=== PATIENT | male | born 1930 | race Caucasian/White ===

== ENCOUNTER 2017-08-09 10:00 | Day surgery (SDC) | payer MEDICARE, OTHER ==
[~2017-08-09] VITALS: Ht 188 cm; Wt 86.2 kg
[~2017-08-09 10:00] MED LIST: ATORVASTATIN CA10 MG PO; ELIQUIS5 MG PO; METFORMIN HCL500 MG PO; TOPROL XL25 MG PO; ZYLOPRIM300 MG PO
--- NOTE | 2017-08-09 13:13 | NUR ---
08/09/17 1313 Dread Leonard RESPONDS TO TAP AND VOICE AT 1310. OPA REMOVED. DENIES PAIN OR NAUSEA.
[2017-08-09] MEDS ORDERED: NORCO 5-325 TA1 EACH PO (14:15)
--- NOTE | 2017-08-09 16:15 | NUR ---
1600 RETURNED TO RM 8 FOR OBSERVATION DUE TO ABD CRAMPING.
--- NOTE | 2017-08-09 16:35 | NUR ---
RESTS QUIETLY. RESP EVEN.
--- NOTE | 2017-08-09 16:38 | NUR ---
DID NOT TAKE IV OUT IN PROCESS AND THEN PT BECAME VERY NAUSEATED SO TAPED BACK DOWN AND WAS GIVEN TE ZOFRAN.
--- NOTE | 2017-08-09 16:50 | NUR ---
PT C/O CONTINUED NAUSEA. SITTING WITH EMESIS BAG TO FACE. NO ACTUAL EMESIS, PHENERGAN GIVEN.
--- NOTE | 2017-08-09 17:50 | NUR ---
NOW I TOOK HIS IV WITH CATH TIP INTACT. WANTS TO GO HOME.
--- NOTE | 2017-08-09 17:54 | NUR ---
PT READY TO GO HOME. HAS TAKEN PO WELL. HAS VOISDED. DENIES NAUSEA. REQ TO HAVE PAIN PILLS AND GIVEN. SON ASSIST WITH GETTING DREESED. CAROLYN SWANN. ICE PACKS GIVEN.
--- NOTE | 2017-08-10 17:49 | OR ---
[facility] [address], [place] [address] Signed DATE OF PROCEDURE: 08/09/17 PREOPERATIVE DIAGNOSES Reducible umbilical hernia (12 mm). Reducible right indirect inguinal hernia. Right hydrocele (11.3 cm). POSTOPERATIVE DIAGNOSES Reducible umbilical hernia (12 mm). Reducible right indirect inguinal hernia. Right hydrocele (11.3 cm). PROCEDURE PERFORMED Primary umbilical herniorrhaphy with intraabdominal Ventralex mesh (6.4 cm). Right Yin onlay mesh inguinal herniorrhaphy. Right hydrocelectomy. ESTIMATED BLOOD LOSS: None. 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 [place] had [place] and [place] been busy [place] the house on the property. He said the last 3 years he has had a painful lump at his umbilicus and swelling in the right groin. He has also noted swelling in his right scrotum. He thinks the hernia in the groin is getting larger and more symptomatic. He went to his primary care provider. He was then asked to see me as a general surgeon. In the meantime, he had an ultrasound and sure enough, he has a large 11.3 cm hydrocele in his right hemiscrotum. On exam, it was very easy to evaluate these 3 areas. I gave Marianna a booklet on hernias and we reviewed that together in detail. We also reviewed the concept of communicating versus a noncommunicating hydrocele. He thought that when he laid down that his hydrocele shrink and became smaller. I explained to Marianna it is not uncommon for us to repair hydroceles at the time of an inguinal hernia surgery. In addition, he was given cardiac clearance by his Advertising Operations Coordinator and his Plastic Mixer. We reviewed umbilical hernia surgery. He understands the difference between a primary repair and a mesh repair. He understands there is risk to umbilical hernia surgery including not limited to bleeding, infection, scarring, change in contour of the skin, damage to bowel, infection of mesh requiring removal, recurrent hernias and chronic pain. In addition, he also understands the difference between a primary suture repair and a mesh repair of an inguinal hernia. There is risk including but not limited to bleeding, infection, scarring, change in contour of the skin, damage to the nerves, ischemic orchitis, recurrent hernias, and chronic pain. He also understands the 2 different hydrocele repairs and we reviewed that in detail. He expressed understanding and wished to Electronically Signed By: SHANICE JOHNSON MD 08/10/17 1749 PATIENT NAME: MARIANNA LEARY OPERATIVE REPORT DATE OF : 32 PHYSICIAN: SHANICE JOHNSON MD REPORT #: [id number] REPORT IS CONFIDENTIAL AND NOT TO BE RELEASED WITHOUT AUTHORIZATION [address] [address] Signed proceed. DESCRIPTION OF PROCEDURE I met with Matteo and his son in our preop area. We all agreed on the 3 areas and we marked them appropriately. After this, Matteo was taken into our operating room and placed in the supine position under general endotracheal tube anesthesia. He was given preoperative antibiotics along with subcutaneous heparin. SCDs were utilized. He was then prepped and draped in the usual sterile fashion. After this, we approached his umbilical hernia 1st. A standard infraumbilical transverse incision was made and carried down and around the umbilicus bluntly and with the cautery. The hernia sac was amputated and passed off the field. We chose our 6.4 cm round Ventralex mesh. We placed that into the abdominal cavity and brought it up, flushed against the posterior abdominal wall. The fascial defect was closed transversely with a running #1 Prolene suture. Several passes of the suture went through the tab on the mesh to help hold it in place. The tab was then cut flush with the abdominal wall and discarded. Local anesthetic was then copiously injected into the operative field. The wound was irrigated and suctioned out until clear. We held the umbilical skin down to the midline fascia with an interrupted 2-0 PDS suture. The dermis was then reapproximated with interrupted 3-0 subcuticular Monocryl sutures. The skin edges were then reapproximated with a running 6-0 fast absorbing plain gut suture. After this, we approached the right groin. A standard oblique incision was made in the right groin and carried down through the tissues bluntly and with the cautery. The external oblique fascia was opened along its length and developed medially and laterally. The ilioinguinal iliohypogastric nerves were visualized and protected throughout the case. The direct space was unremarkable. He did have just a small cord lipoma, which we easily from the cord down to the level of deep ring. It was suture ligated at the level of deep ring, amputated, and passed off the field. We then a moderate-sized inguinal hernia sac on the anteromedial side of the cord structures at the level of deep ring. We opened that up and reduce the fat contents. The neck of the hernia sac was then suture ligated with 2-0 PDS suture and then amputated and passed off the field. At this point, we realized that he had a noncommunicating hydrocele. We used gentle pressure to see if we could deliver that hydrocele and testicle up into the groin. However, this was not successful, we consequently made an incision over the right hemiscrotum vertically and then carried through the tissues with the help of the cautery. We made just wide enough to get the hydrocele and the testicle out onto the operative field. The hydrocele was opened and all the fluid was evacuated. The entire hydrocele sac was then excised back to the edges of the testicle near the epididymis. Hydrocele sac was then passed off the field. We then returned the testicle to the right hemiscrotum and made sure that the cord structures were not rotated. Just a single stitch was placed at the bottom of the scrotum through the base of the gubernaculum on the inferior pole of the testicle to help hold it in place. We then irrigated the wound and suctioned that out until clear. The scrotum was then closed with the help of interrupted 3-0 Monocryl sutures. The skin edges of the scrotum and then Electronically Signed By: SHANICE JOHNSON MD 08/10/17 1749 PATIENT NAME: MARIANNA LEARY OPERATIVE REPORT DATE OF : 32 PHYSICIAN: SHANICE JOHNSON MD REPORT #: [id number] REPORT IS CONFIDENTIAL AND NOT TO BE RELEASED WITHOUT AUTHORIZATION [address] [address] Signed reapproximated with a running 6-0 fast absorbing plain gut suture. After this, we returned to the groin and we used flat piece of Prolene mesh, and we cut that mesh to fit his groin and a slit was made in the mesh to accommodate the cord structures at the level of the deep ring. The mesh was held in place medially and laterally with a running #1 Prolene suture. There was no undue ten s ion of the mesh at the level of deep ring around the cord structures. We then injected local anesthetic into the operative field. The wound was irrigated and suctioned out until clear. The external oblique fascia was closed over the repair with a running 2 -0 PDS suture. Ernesto's fascia was reapproximated with a running 3-0 Monocryl suture. The dermis was reapproximated with interrupted 3-0 subcuticular Monocryl sutures. The skin edges were reapproximated with running 6-0 fast absorbing plain gut suture. After this, Bactroban ointment was applied to the umbilicus as well as the right hemiscrotal incision. Dry gauze and tape were applied to the umbilicus as well as the right groin. A dry ABD and some underwear was applied over the scrotum. Matteo was then awakened from his anesthesia, extubated in the OR, taken to recovery room in stable condition. MD LUIS ALBERTO Lee/Modl /[id number] cc: MD Brandyn Kyle MD Electronically Signed By: SHANICE JOHNSON MD 08/10/17 1749 PATIENT NAME: MARIANNA LEARY OPERATIVE REPORT DATE OF : 32 PHYSICIAN: SHANICE JOHNSON MD REPORT #: [id number] REPORT IS CONFIDENTIAL AND NOT TO BE RELEASED WITHOUT AUTHORIZATION
== END 2017-08-09 17:50 | disposition home or self-care (01) ==
LOC: DS 10:00
PROVIDERS: Colon & Rectal Surgery
PROC: 0WUF0JZ Supplement Abdominal Wall with Synthetic Substitute, Open Approach (ICD-10-PCS; principal; 2017-08-09 10:45)
PROC: 0YU50JZ Supplement Right Inguinal Region with Synthetic Substitute, Open Approach (ICD-10-PCS; 2017-08-09 10:45)
PROC: 0VB60ZZ Excision of Right Tunica Vaginalis, Open Approach (ICD-10-PCS; 2017-08-09 10:45)
DX: K42.9 Umbilical hernia without obstruction or gangrene (principal); K40.90 Unilateral inguinal hernia, without obstruction or gangrene, not specified as recurrent; N43.3 Hydrocele, unspecified; I48.91 Unspecified atrial fibrillation; I44.2 Atrioventricular block, complete; I10 Essential (primary) hypertension; N40.0 Benign prostatic hyperplasia without lower urinary tract symptoms; E78.5 Hyperlipidemia, unspecified; E11.9 Type 2 diabetes mellitus without complications; M10.9 Gout, unspecified; Z95.0 Presence of cardiac pacemaker; Z86.010 Personal history of colon polyps; Z79.899 Other long term (current) drug therapy; Z98.890 Other specified postprocedural states
CPT/HCPCS: 00750; C1781; J0330; J0690; J1170; J1885; J2250; J2405; J2550; J2704; J3010; J7120

== ENCOUNTER 2020-10-13 21:44 | Emergency (ER) | payer OTHER ==
[~2020-10-13] VITALS: Ht 188 cm; Wt 68.5 kg
[~2020-10-13 21:44] MED LIST changes: +NORCO 5-325 TA1 EACH PO
[2020-10-13] MEDS ORDERED: CELEBREX100 MG PO (22:05)
[2020-10-14] MEDS ORDERED: LASIX20 MG PO (00:22)
--- NOTE | 2020-10-15 21:30 | EKG ---
[facility] [address] [place] [address] Signed Atrial-sensed ventricular-paced rhythm Abnormal ECG When compared with ECG of 02-AUG-2017 09:25, Vent. rate has decreased BY 4 BPM Confirmed by GAIL ADKINS MD ([id number]) on 10/15/2020 9:30:27 PM Electronically Signed By: GAIL ADKINS MD 10/15/20 2130 PATIENT NAME: MARIANNA LEARY GENE Electrocardiogram DATE OF : 32 PHYSICIAN: GAIL ADKINS MD REPORT #: [id number] REPORT IS CONFIDENTIAL AND NOT TO BE RELEASED WITHOUT AUTHORIZATION
== END 2020-10-14 00:37 | disposition home or self-care (01) ==
LOC: ED 21:44
DX: I50.9 Heart failure, unspecified (principal); D64.9 Anemia, unspecified; I48.91 Unspecified atrial fibrillation; E78.00 Pure hypercholesterolemia, unspecified; Z79.899 Other long term (current) drug therapy; Z79.84 Long term (current) use of oral hypoglycemic drugs; Z85.51 Personal history of malignant neoplasm of bladder
CPT/HCPCS: 71045; 80053; 82607; 82728; 82746; 83540; 83880; 84466; 84484; 85025; 85045; 93005; 93010; 99284-25

== ENCOUNTER 2021-10-11 09:28 | Emergency (ER) | payer OTHER, MEDICARE ==
[~2021-10-11] VITALS: Ht 188 cm; Wt 75.7 kg
[~2021-10-11 09:28] MED LIST changes: +CELEBREX100 MG PO; +LASIX20 MG PO
== END 2021-10-11 13:43 | disposition home or self-care (01) ==
LOC: ED 09:28
DX: S22.32XA Fracture of one rib, left side, initial encounter for closed fracture (principal); Z20.822 Contact with and (suspected) exposure to COVID-19; E11.9 Type 2 diabetes mellitus without complications; E78.00 Pure hypercholesterolemia, unspecified; Z79.899 Other long term (current) drug therapy; Z79.891 Long term (current) use of opiate analgesic; W01.10XA Fall on same level from slipping, tripping and stumbling with subsequent striking against unspecified object, initial encounter
CPT/HCPCS: 71046; 99283-25; C9803; U0003